=== PATIENT | female | born 1965 | race Caucasian/White ===

== ENCOUNTER → 2020-08-31 | Outpatient (CLI) | payer OTHER | END | disposition home or self-care (01) | LOC: RAD 08:39 | PROVIDERS: ATTEND Surgery | DX: Z01.818 Encounter for other preprocedural examination (principal); K44.9 Diaphragmatic hernia without obstruction or gangrene; E66.01 Morbid (severe) obesity due to excess calories; Z68.42 Body mass index [BMI] 45.0-49.9, adult | CPT/HCPCS: 71046; 74240; 93005 ==

== ENCOUNTER 2020-09-14 10:43 | Day surgery (SDC) | payer OTHER ==
[~2020-09-14] VITALS: Ht 170.2 cm; Wt 131.4 kg
[2020-09-14] MEDS ORDERED: LOSA50TA14 PO (11:26)
[2020-09-14] MEDS ORDERED: LEVO200T5 PO (11:28)
[2020-09-14] MEDS ORDERED: LORA10TA75 PO (11:28)
[2020-09-14] MEDS ORDERED: CHLORHEXIDINE 15 ML UDC PO ONE (11:30)
[2020-09-14] MEDS ORDERED: LACTATED RINGERS 1,000 ML IV SCH (11:30)
[2020-09-14] MEDS ORDERED: CHLORHEXIDINE 15 ML UDC ONE (11:32)
[2020-09-14] MEDS ORDERED: BUPIVACAINE/PF 0.25% ONE (11:35)
[2020-09-14 11:48] LABS: HCG UR SG 1.024 (1.003-1.030)
[2020-09-14 12:04] VITALS: BP 141/93
[2020-09-14 12:21] LABS: ALBUMIN 3.1 g/dL (3.4-5.0); ANION GAP 7 mmol/L (5-15); CALCIUM 9.1 mg/dL (8.5-10.1); CHLORIDE 111 mmol/L (98-107)
[2020-09-14 12:27] LABS: ALANINE AMINOTRANSFERASE 59 U/L (12-78); ALKALINE PHOSPHATASE 87 U/L (45-117); BILIRUBIN,TOTAL 0.8 mg/dL (0.2-1.0); CREATININE 0.67 mg/dL (0.55-1.02); TOTAL PROTEIN 8.2 g/dL (6.4-8.2)
[2020-09-14] MEDS ORDERED: MIDAZOLAM 1 MG/ML, 2ML ONE (12:39)
[2020-09-14] MEDS ORDERED: FENTANYL PF 250 MCG/5ML ONE (12:40)
[2020-09-14] MEDS ORDERED: PROPOFOL 10 MG/ML, 20ML ONE (13:31)
[2020-09-14] MEDS ORDERED: KETOROLAC 30 MG/1 ML ONE (13:31)
[2020-09-14] MEDS ORDERED: SUCCINYLCHOLINE 20 MG/ML, 10ML ONE (13:31)
[2020-09-14] MEDS ORDERED: ONDANSETRON 2MG/ML, 2ML ONE (13:31)
[2020-09-14] MEDS ORDERED: DEXAMETHASONE 4 MG/ML, 1ML ONE (13:31)
[2020-09-14] MEDS ORDERED: BUPIVACAINE/PF-EPI 0.25% 1:200K INFIL ONE (13:45)
[2020-09-14] MEDS ORDERED: FENTANYL PF 100 MCG/2ML ONE (13:59)
[2020-09-14] MEDS ORDERED: HYDROmorphone 1 MG/ML, 1ML INJ IVPush PRN (14:00)
[2020-09-14] MEDS ORDERED: ONDANSETRON 2MG/ML, 2ML IVPush PRN (14:00)
[2020-09-14] MEDS ORDERED: HALOPERIDOL 5 MG/ML IV PRN (14:00)
[2020-09-14] MEDS ORDERED: LORazepam 2 MG/ML, 1ML IVPush PRN (14:00)
[2020-09-14] MEDS ORDERED: ACETAMINOPHEN 325 MG TABLET PO PRN (14:00)
[2020-09-14] MEDS ORDERED: PROMETHAZINE 25 MG/ML, 1ML IVPush PRN (14:00)
[2020-09-14] MEDS ORDERED: OXYcodone 5 MG/5 ML ORAL.SOL UDC PO PRN (14:00)
[2020-09-14] MEDS ORDERED: EPHEDRINE 50 MG/ML, 1ML IM PRN (14:00)
[2020-09-14] MEDS ORDERED: LABETALOL 5MG/ML, 20ML IV PRN (14:00)
[2020-09-14] MEDS ORDERED: hydrALAzine 20 MG/ML, 1ML IV PRN (14:00)
[2020-09-14] MEDS ORDERED: FENTANYL PF 100 MCG/2ML IV PRN (14:00)
[2020-09-14] MEDS ORDERED: MEPERIDINE/PF 25MG/0.5ML IVPush PRN (14:00)
[2020-09-14] MEDS ORDERED: SILVER NITRATE STICK TP ONE (14:14)
== END 2020-09-14 15:45 | disposition home or self-care (01) ==
LOC: OUT 10:43
PROVIDERS: ATTEND Specialist
DX: N95.0 Postmenopausal bleeding (principal); D25.0 Submucous leiomyoma of uterus; N84.1 Polyp of cervix uteri; I10 Essential (primary) hypertension; E89.0 Postprocedural hypothyroidism; E66.01 Morbid (severe) obesity due to excess calories; Z68.42 Body mass index [BMI] 45.0-49.9, adult; Z79.890 Hormone replacement therapy; Z79.899 Other long term (current) drug therapy
CPT/HCPCS: 36415; 58561; 80053; 81025; 88305; J0330; J1100; J1885; J2250; J2405; J2704; J3010; J7120

== ENCOUNTER 2020-10-22 12:45 | Outpatient (CLI) | payer OTHER ==
[~2020-10-22 12:45] MED LIST: LEVO200T5 PO; LORA10TA75 PO; LOSA50TA14 PO
== END 2020-10-22 23:59 | disposition home or self-care (01) ==
LOC: CVU 12:45
PROVIDERS: ATTEND Internal Medicine Cardiovascular Disease
DX: Z01.810 Encounter for preprocedural cardiovascular examination (principal); I10 Essential (primary) hypertension; R01.1 Cardiac murmur, unspecified
CPT/HCPCS: C8929; Q9957